=== PATIENT | male | born 1940 | race African-American/Black ===

== ENCOUNTER 2018-04-26 15:32 | Emergency (ER) | payer MEDICAID ==
[~2018-04-26] VITALS: Ht 172.7 cm; Wt 77.0 kg
[2018-04-26] MEDS ORDERED: SODIUM CHLORIDE 0.9% 1,000 ML IV ONE (16:30)
[2018-04-26] MEDS ORDERED: MORPHINE SULFATE 4 MG/ML CPJ (NOT FOR IM USE) IV STA (16:30)
[2018-04-26] MEDS ORDERED: ONDANSETRON HCL 4MG/2ML INJ IV STA (16:30)
[2018-04-26 16:46] LABS: BASOPHILS % 0.4 % (0.0-2.0); HEMATOCRIT. 38.3 % (42.0-52.0); HEMOGLOBIN. 13.2 g/dL (14.0-18.0); LYMPHOCYTES % 22.2 % (20.0-50.0); MEAN CORPUSCULAR HEMOGLOBIN 28.7 pg (28.0-32.0); MEAN CORPUSCULAR VOLUME 83.2 fL (80.0-94.0); MEAN PLATELET VOLUME 8.6 fl (7.4-10.4); MONOCYTES % 10.3 % (2.0-8.0); NEUTROPHILS % 65.1 % (40.0-76.0); PLATELET 130 x1000/uL (130-400); RED CELL DISTRIBUTION WIDTH 13.2 % (11.6-14.6)
[2018-04-26 16:51] LABS: CHLORIDE 104 mEq/L (98-107)
[2018-04-26 16:53] LABS: INR 1.1; PROTHROMBIN TIME 10.9 sec (9.1-11.1)
[2018-04-26 17:07] LABS: CLARITY URINE CLEAR (CLEAR); COLOR URINE YELLOW (YELLOW); KETONES URINE NEGATIVE (NEGATIVE); LEUKOCYTE ESTERASE URINE 3+ (NEGATIVE); NITRITE URINE POSITIVE (NEGATIVE); OCCULT BLOOD URINE TRACE (NEGATIVE); PROTEIN URINE NEGATIVE (NEGATIVE); SPECIFIC GRAVITY URINE 1.007 (1.005-1.030); UROBILINOGEN URINE 0.2 E.U./dL (0.2-1.0)
[2018-04-26] MEDS ORDERED: CEFTRIAXONE 2 G PREMIX 50 ML IV ONE (19:30)
[2018-04-26] MEDS ORDERED: IOHEXOL-300 100 ML BOTTLE ONE (19:48)
[2018-04-26 22:41] VITALS: BP 137/50
== END 2018-04-26 22:42 | disposition home or self-care (01) ==
LOC: ER 15:32
DX: K40.90 Unilateral inguinal hernia, without obstruction or gangrene, not specified as recurrent (principal); N39.0 Urinary tract infection, site not specified; D64.9 Anemia, unspecified; I10 Essential (primary) hypertension
CPT/HCPCS: 36415; 51702; 74177; 76705; 80053; 81003; 83690; 85025; 85610; 96365; 96375; 99285; J0696; J2270; J2405; J7030; Q9967; A4315

== ENCOUNTER 2019-01-10 12:58 | Inpatient (IN) | payer MEDICARE, MEDICAID ==
[~2019-01-10] VITALS: Ht 170.2 cm; Wt 67.1 kg
[2019-01-10] MEDS ORDERED: IBUPROFEN 600MG TABLET PO STA (16:27)
[2019-01-10 17:05] LABS: CHLORIDE 102 mEq/L (98-107)
[2019-01-10 17:10] LABS: BASOPHILS % 0.1 % (0.0-2.0); EOSINOPHILS % 0.1 % (0.0-5.0); HEMATOCRIT. 39.5 % (42.0-52.0); HEMOGLOBIN. 13.2 g/dL (14.0-18.0); LYMPHOCYTES % 10.5 % (20.0-50.0); MEAN CORPUSCULAR HEMOGLOBIN 28.4 pg (28.0-32.0); MEAN CORPUSCULAR VOLUME 84.5 fL (80.0-94.0); MEAN PLATELET VOLUME 8.6 fl (7.4-10.4); MONOCYTES % 7.2 % (2.0-8.0); NEUTROPHILS % 82.1 % (40.0-76.0); PLATELET 112 x1000/uL (130-400); RED BLOOD CELL COUNT 4.67 mill/uL (4.7-6.1); RED CELL DISTRIBUTION WIDTH 13.9 % (11.6-14.6)
[2019-01-10] MEDS ORDERED: ACETAMINOPHEN 325MG TABLET PO STA (17:31)
[2019-01-10] MEDS ORDERED: PIPERACILLIN/TAZ 3.375G PREMIX 50 ML IV ONE (17:45)
[2019-01-10] MEDS ORDERED: VANCOMYCIN 1 G PREMIX 200 ML IV ONE (17:45)
[2019-01-10] MEDS ORDERED: SODIUM CHLORIDE 0.9% 1000ML BAG (SEPSIS BOLUS) IV ONE (17:45)
[2019-01-10 18:28] LABS: CLARITY URINE CLEAR (CLEAR); COLOR URINE YELLOW (YELLOW); KETONES URINE NEGATIVE (NEGATIVE); LEUKOCYTE ESTERASE URINE 3+ (NEGATIVE); NITRITE URINE NEGATIVE (NEGATIVE); OCCULT BLOOD URINE 2+ (NEGATIVE); PROTEIN URINE NEGATIVE (NEGATIVE); SPECIFIC GRAVITY URINE 1.012 (1.005-1.030); UROBILINOGEN URINE 0.2 E.U./dL (0.2-1.0)
[2019-01-10 22:00] VITALS: BP 145/72
[2019-01-10 22:12] VITALS: BP 145/72
[2019-01-10 22:33] VITALS: BP 145/72
[2019-01-10] MEDS ORDERED: ACETAMINOPHEN 325MG TABLET PO PRN (23:00)
[2019-01-11 00:04] LABS: BASOPHILS % 0.1 % (0.0-2.0); EOSINOPHILS % 0.2 % (0.0-5.0); HEMATOCRIT. 34.5 % (42.0-52.0); HEMOGLOBIN. 11.8 g/dL (14.0-18.0); LYMPHOCYTES % 13.7 % (20.0-50.0); MEAN CORPUSCULAR HEMOGLOBIN 28.6 pg (28.0-32.0); MEAN CORPUSCULAR VOLUME 83.6 fL (80.0-94.0); MEAN PLATELET VOLUME 8.4 fl (7.4-10.4); MONOCYTES % 13.2 % (2.0-8.0); NEUTROPHILS % 72.8 % (40.0-76.0); PLATELET 98 x1000/uL (130-400); RED BLOOD CELL COUNT 4.13 mill/uL (4.7-6.1); RED CELL DISTRIBUTION WIDTH 14.1 % (11.6-14.6)
[2019-01-11 00:06] LABS: CHLORIDE 110 mEq/L (98-107)
[2019-01-11 02:00] VITALS: BP 140/78
[2019-01-11 04:00] VITALS: BP 149/65
[2019-01-11] MEDS: PIPERACILLIN/TAZ 3.375G PREMIX 50 ML IV SCH ×3 (04:43→18:18)
[2019-01-11 08:00] VITALS: BP 134/65
[2019-01-11 12:00] VITALS: BP 138/58
[2019-01-11 16:00] VITALS: BP 119/62
[2019-01-11 20:00] VITALS: BP 137/64
[2019-01-11] MEDS: POLYVINYL ALCOHOL OPHTH DROPS 15ML BOTHEYE SCH (20:57)
[2019-01-11] MEDS: DORZOLAM/TIMOLOL 2.23/0.68% OPHTH DROPS 10ML BOTHEYE SCH (20:57)
[2019-01-12] VITALS: BP 146/66
[2019-01-12] MEDS: PIPERACILLIN/TAZ 3.375G PREMIX 50 ML IV SCH ×5 (00:54→23:38)
[2019-01-12 04:00] VITALS: BP 141/60
[2019-01-12 08:00] VITALS: BP 162/57
[2019-01-12] MEDS: DORZOLAM/TIMOLOL 2.23/0.68% OPHTH DROPS 10ML BOTHEYE SCH ×2 (08:24→21:21)
[2019-01-12] MEDS: POLYVINYL ALCOHOL OPHTH DROPS 15ML BOTHEYE SCH ×4 (08:25→21:21)
[2019-01-12 12:00] VITALS: BP 129/64
[2019-01-12 16:00] VITALS: BP 141/61
[2019-01-12] MEDS: BRIMONIDINE 0.2% OPHTH DROPS 5ML EACHEYE SCH ×2 (16:40→21:21)
[2019-01-12 20:00] VITALS: BP 149/69
[2019-01-13] VITALS: BP 145/57
[2019-01-13 04:00] VITALS: BP 146/74
[2019-01-13] MEDS: PIPERACILLIN/TAZ 3.375G PREMIX 50 ML IV SCH ×2 (05:14→11:51)
[2019-01-13] MEDS: BRIMONIDINE 0.2% OPHTH DROPS 5ML EACHEYE SCH ×2 (05:18→13:53)
[2019-01-13 08:00] VITALS: BP 132/79
[2019-01-13] MEDS ORDERED: NITR100C MT (08:36)
[2019-01-13 10:00] LABS: BASOPHILS % 0.4 % (0.0-2.0); HEMATOCRIT. 38.4 % (42.0-52.0); HEMOGLOBIN. 12.8 g/dL (14.0-18.0); LYMPHOCYTES % 28.1 % (20.0-50.0); MEAN CORPUSCULAR HEMOGLOBIN 28.3 pg (28.0-32.0); MEAN CORPUSCULAR VOLUME 84.5 fL (80.0-94.0); MEAN PLATELET VOLUME 8.3 fl (7.4-10.4); MONOCYTES % 13.3 % (2.0-8.0); NEUTROPHILS % 55.2 % (40.0-76.0); PLATELET 119 x1000/uL (130-400); RED BLOOD CELL COUNT 4.54 mill/uL (4.7-6.1)
[2019-01-13 10:11] LABS: CHLORIDE 104 mEq/L (98-107)
[2019-01-13] MEDS: DORZOLAM/TIMOLOL 2.23/0.68% OPHTH DROPS 10ML BOTHEYE SCH (11:39)
[2019-01-13] MEDS: POLYVINYL ALCOHOL OPHTH DROPS 15ML BOTHEYE SCH ×2 (11:41→13:53)
[2019-01-13 12:00] VITALS: BP 128/79
[2019-01-13] MEDS ORDERED: CEFEPIME 1,000 MG in DEXTROSE 5% WATER 50 ML IV SCH (13:00)
[2019-01-13] MEDS ORDERED: BRIM.2 EACHEYE (13:30)
[2019-01-13] MEDS ORDERED: DORZ10DR12 BOTHEYE (13:30)
[2019-01-13 16:00] VITALS: BP 97/67
[2019-01-13] MEDS ORDERED: POTASSIUM CHLORIDE 20MEQ TABLET SR PO NR (16:05)
[2019-01-13 16:06] VITALS: BP 128/79
== END 2019-01-13 18:15 | disposition home or self-care (01) | DRG 872 ==
LOC: ER 12:58 → 7WST 18:40 → EDBEDREQ 18:41 → EDBEDREQSVC 18:41 → ENRESERV 21:04
PROVIDERS: ADMIT Family Medicine; ATTEND Family Medicine
DX: A41.50 Gram-negative sepsis, unspecified (principal); E87.2 Acidosis; E87.1 Hypo-osmolality and hyponatremia; N39.0 Urinary tract infection, site not specified; N40.1 Benign prostatic hyperplasia with lower urinary tract symptoms; I10 Essential (primary) hypertension; R33.8 Other retention of urine; D63.8 Anemia in other chronic diseases classified elsewhere; H40.9 Unspecified glaucoma; E87.5 Hyperkalemia; I25.10 Atherosclerotic heart disease of native coronary artery without angina pectoris; B96.4 Proteus (mirabilis) (morganii) as the cause of diseases classified elsewhere; Z79.899 Other long term (current) drug therapy
CPT/HCPCS: 36415; 71045; 73630; 83605; 84484; 87077; 87186; 93005; 93306; 96365; 96368; 99291; J0692; J2543; J3370; J7030; J7040; J7060